=== PATIENT | male | born 1970 | race African-American/Black ===

== ENCOUNTER 2021-03-23 05:29 | Emergency (ER) | payer MEDICAID ==
[~2021-03-23] VITALS: Ht 165.1 cm; Wt 72.0 kg
[2021-03-23 09:45] LABS: CLARITY URINE CLEAR (CLEAR); COLOR URINE YELLOW (YELLOW); KETONES URINE NEGATIVE (NEGATIVE); LEUKOCYTE ESTERASE URINE NEGATIVE (NEGATIVE); NITRITE URINE NEGATIVE (NEGATIVE); OCCULT BLOOD URINE NEGATIVE (NEGATIVE); PH URINE 7.5 (4.5-8.0); PROTEIN URINE NEGATIVE (NEGATIVE); SPECIFIC GRAVITY URINE 1.009 (1.005-1.030)
[2021-03-23 09:59] LABS: BASOPHILS % 0.7 % (0.0-2.0); EOSINOPHILS % 0.7 % (0.0-5.0); HEMATOCRIT. 41.3 % (42.0-52.0); HEMOGLOBIN. 13.6 g/dL (14.0-18.0); LYMPHOCYTES % 22.1 % (20.0-50.0); MEAN CORPUSCULAR HEMOGLOBIN 27.5 pg (28.0-32.0); MEAN CORPUSCULAR VOLUME 83.5 fL (80.0-94.0); MEAN PLATELET VOLUME 8.8 fl (7.4-10.4); MONOCYTES % 7.9 % (2.0-8.0); NEUTROPHILS % 68.6 % (40.0-76.0); PLATELET 245 x1000/uL (130-400); RED BLOOD CELL COUNT 4.95 mill/uL (4.7-6.1); RED CELL DISTRIBUTION WIDTH 13.3 % (11.6-14.6)
[2021-03-23 10:03] LABS: CHLORIDE 106 mEq/L (98-107)
[2021-03-23] MEDS ORDERED: CEPH500C2 MT (12:51)
[2021-03-23 13:43] VITALS: BP 148/75
== END 2021-03-23 13:45 | disposition home or self-care (01) ==
LOC: ER 05:29
DX: L03.90 Cellulitis, unspecified (principal)
CPT/HCPCS: 36415; 73610; 73630; 80053; 80320; 81003; 84484; 85025; 99284; G0480